=== PATIENT | male | born 1945 | race Caucasian/White ===

== ENCOUNTER 2020-03-09 17:28 | Emergency (ER) | payer MEDICARE, OTHER, SELFPAY ==
--- NOTE | 2020-03-09 18:00 | PC.NURSE ---
Pt family member to desk. PT family member states I am sorry we are going to leave dad does not like crowds and its too busy in here for him.
== END 2020-03-09 18:00 | disposition left against medical advice (07) ==
PROVIDERS: PCP Family Medicine
DX: Z53.21 Procedure and treatment not carried out due to patient leaving prior to being seen by health care provider (principal)
CPT/HCPCS: 99199

== ENCOUNTER 2020-03-09 18:45 | Inpatient (IN) | payer MEDICARE, OTHER, SELFPAY ==
[2020-03-09 19:13] VITALS: BP 127/70; PULSE 76; RESP 20; TEMP 36.8; O2SAT 97
[2020-03-09 20:17] LABS: Basophils Absolute Auto 0.04 K/mm3 (0.00-0.10); Basophils Percent Auto 0.6 % (0.0-1.0); Eosinophils Absolute Auto 0.16 K/mm3 (0.02-0.50); Eosinophils Percent Auto 2.4 % (1.0-6.0); Hematocrit 39.9 % (37.0-46.0); Hemoglobin 13.4 g/dL (12.4-15.3); Immature Granulocyte Absolute 0.07 K/mm3 (0.00-0.00); Immature Granulocyte Percent A 1.1 % (0.0-0.0); Lymphocytes Absolute Auto 1.22 K/mm3 (1.10-4.50); Lymphocytes Percent Auto 18.5 % (18.0-42.0); Mean Corpuscular HGB Conc 33.6 g/dL (32.0-36.0); Mean Corpuscular Hemoglobin 33.3 pg (27.0-31.0); Mean Corpuscular Volume 99.3 fL (78.0-102.0); Mean Platelet Volume 9.8 fl (8.7-11.0); Monocytes Absolute Auto 0.76 K/mm3 (0.10-0.90); Monocytes Percent Auto 11.5 % (2.0-11.0); Neutrophils Absolute Auto 4.4 K/mm3 (1.7-7.2); Neutrophils Percent Auto 65.9 % (50.0-70.0); Platelet Count Result 140 K/mm3 (150-420); Red Blood Count 4.02 M/mm3 (4.70-6.10); Red Cell Distribution Width 13.5 % (11.6-14.4); White Blood Count 6.6 K/mm3 (4.8-10.8)
--- NOTE | 2020-03-09 20:23 | ED.EAR ---
HPI - Ear Problem General Source: patient and family Mode of arrival: ambulatory Limitations: other (education status) History of Present Illness HPI Narrative: Patient comes in, he had been seen by Dr Elliott, the ear doctor. He has been treated for an otitis externa without improvement. He saw Dr Elliott and had a ct of his head done today. He was supposed to go to [place] to be admitted for a miliganant otitis externa, but while there waiting he got aggravated and decided to leave and come here. He requests treatment here for his ear. MD Complaint: ear pain and ear discharge (clear from right ear) Duration: constant Severity: moderate Relieving factors: nothing Discharge from ear: Reports yes - clear Associated symptoms ear: external ear tenderness Treatment prior to arrival: other (oral antibiotic) Related Data Home Medications Medication Instructions Recorded Confirmed insulin aspart U-100 100 unit/mL 5 unit SUBCUT TID 03/03/20 03/09/20 (3 mL) subcutaneous pen insulin glargine 100 unit/mL (3 10 unit SUBCUT QPM 03/03/20 03/09/20 mL) subcutaneous pen nitroglycerin 0.4 mg sublingual 0.4 mg SUBLINGUAL Q5M PRN 03/03/20 03/09/20 tablet pantoprazole 40 mg tablet,delayed 40 mg PO QAM 03/03/20 03/09/20 release paroxetine HCl 40 mg tablet 40 mg PO DAILY 03/03/20 03/09/20 pravastatin 40 mg tablet 40 mg PO DAILY 03/03/20 03/09/20 spironolactone 50 mg tablet 50 mg PO DAILY 03/03/20 03/09/20 tamsulosin 0.4 mg capsule 0.4 mg PO DAILY 03/03/20 03/09/20 triamcinolone acetonide 0.1 % 1 applic DENTAL BID 03/03/20 03/09/20 dental paste aspirin [Aspir-Low] 81 mg PO DAILY 03/09/20 03/09/20 carvedilol [Coreg] 3.125 mg PO DAILY 03/09/20 03/09/20 ferrous sulfate 325 mg PO DAILY 03/09/20 03/09/20 furosemide 20 mg PO DAILY 03/09/20 03/09/20 metformin 1,000 mg PO BID 03/09/20 03/09/20 Allergies Allergy/AdvReac Type Severity Reaction Status Date / Time blue dye Allergy Unknown Verified 03/09/20 22:10 Review of Systems Review of Systems: Narrative: He denies fever and chills. He has had pain in the right jaw and pain with chewing. He denies any other symptoms. PMFSH Social History Social History Smoking status: Never smoker Smokeless tobacco user: chewing tobacco Second hand tobacco smoke exposure: No Alcohol intake: never Substance use: never Gender identity (if verbalized by the patient): Male Spiritual care concerns: No Exam Narrative: Exam Narrative: Side of right face is swollen. Const: General: no acute distress Nutritional Appearance: well nourished HENMT: Other: Swollen left face, with mild erythema. Eyes: Conjunctivae: conjunctivae normal Neck: Other: left neck swollen near left ear Chest: Chest palpation & inspection: normal inspection of the chest Resp: Effort & Inspection: normal respiratory effort Auscultation: clear to auscultation bilaterally Cardio: Rate: regular rate Rhythm: regular rhythm GI: GI Palp: Yes Soft to palpation Auscultation: normal bowel sounds Skin: General skin exam: normal color Neuro: General: patient oriented x3 and moves all extremities Extrem: General: normal to inspection Psych: Appearance: grossly normal Affect: normal affect Course Course Emergency Course: Discussed case with the ENT who had cared for him Dr Elliott. He asks us to admit and treat with Cipro 400mg IV every 8 hours. Labs reviewed, reviewed CT from [facility]. Vital Signs Vital signs: Vital Signs Temperature 36.8 C 03/09/20 19:13 Pulse Rate 76 03/09/20 19:13 Respiratory Rate 20 03/09/20 19:13 Blood Pressure 127/70 03/09/20 19:13 Pulse Oximetry 97 03/09/20 19:13 Temperature 37.2 C 03/09/20 22:59 Pulse Rate 76 03/09/20 22:59 Respiratory Rate 18 03/09/20 22:59 Blood Pressure 123/71 03/09/20 22:59 Pulse Oximetry 96 03/09/20 22:59 Medical Decision Making Vital Si
[2020-03-09 20:29] LABS: Alanine Aminotransferase 77 U/L (16-63); Albumin Level 2.9 g/dL (3.4-5.0); Alkaline Phosphatase 333 U/L (46-116); Anion Gap 11 mmol/L (8-16); Aspartate Amino Transferase 76 U/L (15-37); Bilirubin,Total 0.6 mg/dL (0.00-1.00); Blood Urea Nitrogen 19 mg/dL (7-18); Carbon Dioxide 23 mmol/L (21-32); Chloride 100 mmol/L (98-108); Estimated CRCL calculation 45 ml/min; Estimated Glomerular Filt Rate > 60; Glucose 317 mg/dL (70-99); Osmolality Calculated 292 mOsm/kg (285-295); Potassium 4.5 mmol/L (3.5-5.1); Sodium 134 mmol/L (136-145); Total Protein 6.8 g/dL (6.4-8.2)
[2020-03-09 20:34] LABS: Lactic Acid Reflex 1.9 mmol/L (0.4-2.0)
[2020-03-09 21:13] LABS: Erythrocyte Sedimentation Rate 42 mm/hr (0-20)
[2020-03-09] MEDS: CIPROFLOXACIN 400 MG/D5W 200ML 200 ML 200 MG IVPB (21:23)
[2020-03-09 21:30] VITALS: BP 140/79; PULSE 74; RESP 20; O2SAT 96
[2020-03-09 22:00] VITALS: BP 123/82; PULSE 81; RESP 20; O2SAT 96
[2020-03-09] MEDS: HYDROcodone/acetaminophen (*CRX) 5-325 MG TABLET 1 TAB PO (22:41)
[2020-03-09 22:43] VITALS: BMI 29.0
[2020-03-09 22:46] VITALS: PULSE 78; RESP 20; O2SAT 96
[2020-03-09 22:59] VITALS: BP 123/71; PULSE 76; RESP 18; TEMP 37.2; O2SAT 96
--- NOTE | 2020-03-09 23:00 | ADMGEN ---
This patient, Gutierrez Smith JrGianna, was admitted to 2nd Floor Room 203-2. Patient oriented to hospital policies and general routines including ID bracelet, bed and alarms, visiting hours, pain management, procedures, bathroom and other care routines, personal items, smoking policy, room service/diet, and visiting hours. Patient are encouraged to report perceived risks to care and to ask questions if they do not understand what they are told or what they should do.
--- NOTE | 2020-03-10 00:30 | PC.NURSE ---
Spoke to Dr. Trujillo regarding pt's c/o ear pain not relieved by by [place]; New orders received and noted.
--- NOTE | 2020-03-10 00:40 | PC.NURSE ---
[facility] notified of need to verify new medication orders before meds can be given.
--- NOTE | 2020-03-10 00:42 | PC.NURSE ---
Spoke to Dr. Trujillo regarding pt's insulin and accuchecks. He said he would put in new orders.
[2020-03-10] MEDS: HYDROmorphone HCL INJ (*CRX) 2 MG/ML VIAL 1 MG IV PUSH ×2 (02:10→06:15)
[2020-03-10] MEDS: CIPROFLOXACIN 400 MG/D5W 200ML 200 ML 200 MG IVPB ×2 (05:07→12:49)
[2020-03-10 05:41] LABS: Basophils Absolute Auto 0.05 K/mm3 (0.00-0.10); Basophils Percent Auto 0.8 % (0.0-1.0); Eosinophils Absolute Auto 0.16 K/mm3 (0.02-0.50); Eosinophils Percent Auto 2.6 % (1.0-6.0); Hematocrit 40.3 % (37.0-46.0); Hemoglobin 13.4 g/dL (12.4-15.3); Immature Granulocyte Absolute 0.06 K/mm3 (0.00-0.00); Lymphocytes Absolute Auto 1.19 K/mm3 (1.10-4.50); Lymphocytes Percent Auto 19.1 % (18.0-42.0); Mean Corpuscular HGB Conc 33.3 g/dL (32.0-36.0); Mean Corpuscular Hemoglobin 33.3 pg (27.0-31.0); Mean Corpuscular Volume 100.2 fL (78.0-102.0); Monocytes Absolute Auto 0.67 K/mm3 (0.10-0.90); Monocytes Percent Auto 10.8 % (2.0-11.0); Neutrophils Absolute Auto 4.1 K/mm3 (1.7-7.2); Neutrophils Percent Auto 65.7 % (50.0-70.0); Platelet Count Result 123 K/mm3 (150-420); Red Blood Count 4.02 M/mm3 (4.70-6.10); Red Cell Distribution Width 13.4 % (11.6-14.4); White Blood Count 6.2 K/mm3 (4.8-10.8)
[2020-03-10 06:24] LABS: Glucose Point of Care 238 (65-105)
[2020-03-10 07:30] VITALS: BP 138/86; PULSE 96; RESP 20; TEMP 36.2; O2SAT 97
[2020-03-10] MEDS: ONDANSETRON INJ 4 MG/2 ML VIAL IV PUSH (07:38)
--- NOTE | 2020-03-10 07:40 | PC.NURSE ---
Patient started feeling nauesous suddenly, had 200 ml of emesis containing undigested bits of food. Yellow/zimmerman in color. Patient states he thinks its because he had not eaten recently. Pt. did receive Dilaudid at 0615, pt. reports never having medication previously. Given Zofran per order IV. Pt. tolerated well. Nausea has passed, pt. able to keep some crackers down. Call light at side.
--- NOTE | 2020-03-10 07:49 | PM.IMHP ---
H&P: HPI History of Present Illness Date/Time: 03/10/20 07:49 Chief complaint: malignant otitis externa Narrative: Gutierrez Smith Jr. is a 74 year old male patient was seen by his oncologist Dr. Austin. Patient has been treated for an otitis externa that has not been healing. Dr. Austin had a head CT completed yesterday which indicated bone involvement then requested the patient to be admitted for IV antibiotics therapy. Patient states that he is having pain to the right TMJ and the pain increases with mastication and with opening his mouth wide. Patient was being treated with oral Cipro and Dr. Austin recommended continuing but with IV Cipro. Review of Systems Constitutional: Constitutional: Reports no additional constitutional complaints, Denies body ache(s), Denies chills, Denies daytime sleepiness, Denies fever(s) and Denies headache(s) ENT: Reports as per HPI Cardiovascular: Cardiovascular: Reports no additional cardiovascular complaints Respiratory: Respiratory: Reports no additional respiratory complaints Gastrointestinal: Gastrointestinal: Reports no additional gastrointestinal complaints Musculoskeletal: Musculoskeletal: Reports as per HPI (TMJ) Neurologic: Reports system reviewed and no additional complaints, except as documented Psychiatric: Psychiatric: Reports no additional psychiatric complaints [facility] Past Medical History Medical History Arthritis Depression Diabetes Edema Full dentures Surgical History Surgical History (Updated 03/10/20 @ 14:18 by GLADYS Salvador) History of heart artery stent Family History Family History (Updated 03/10/20 @ 14:19 by GLADYS Salvador) Father Acute myocardial infarction Cerebrovascular accident Mother Acute myocardial infarction Social History Social History (Updated 03/10/20 @ 14:19 by GLADYS Salvador) Smoking status: Never smoker Smokeless tobacco user: chewing tobacco Second hand tobacco smoke exposure: No Alcohol intake: never Alcohol use details: very seldom Substance use: never Gender identity (if verbalized by the patient): Male Spiritual care concerns: No Meds Home Medications and Allergies Home Medications Medication Instructions Recorded Confirmed Type hydrocodone 5 mg-acetaminophen 325 1 tablet PO .qhs PRN #10 tablet 03/01/20 03/09/20 Rx mg tablet insulin aspart U-100 100 unit/mL 5 unit SUBCUT TID 03/03/20 03/09/20 History (3 mL) subcutaneous pen insulin glargine 100 unit/mL (3 10 unit SUBCUT QPM 03/03/20 03/09/20 History mL) subcutaneous pen [id number] 3.5 4 drp RIGHTEAR Q8H #10 ml 03/03/20 03/09/20 Rx mg/mL-10,000 unit/mL-1 % ear solution nitroglycerin 0.4 mg sublingual 0.4 mg SUBLINGUAL Q5M PRN 03/03/20 03/09/20 History tablet pantoprazole 40 mg tablet,delayed 40 mg PO QAM 03/03/20 03/09/20 History release paroxetine HCl 40 mg tablet 40 mg PO DAILY 03/03/20 03/09/20 History pravastatin 40 mg tablet 40 mg PO DAILY 03/03/20 03/09/20 History spironolactone 50 mg tablet 50 mg PO DAILY 03/03/20 03/09/20 History tamsulosin 0.4 mg capsule 0.4 mg PO DAILY 03/03/20 03/09/20 History triamcinolone acetonide 0.1 % 1 applic DENTAL BID 03/03/20 03/09/20 History dental paste aspirin [Aspir-Low] 81 mg PO DAILY 03/09/20 03/09/20 History carvedilol [Coreg] 3.125 mg PO DAILY 03/09/20 03/09/20 History ferrous sulfate 325 mg PO DAILY 03/09/20 03/09/20 History furosemide 20 mg PO DAILY 03/09/20 03/09/20 History metformin 1,000 mg PO BID 03/09/20 03/09/20 History Allergies Allergy/AdvReac Type Severity Reaction Status Date / Time blue dye Allergy Unknown Verified 03/09/20 22:10 Vital Signs Vital Signs - 24 hr 03/09/20 19:13 03/09/20 21:30 03/09/20 22:00 Temperature 98.2 F Pulse Rate 76 74 81 Respiratory Rate 20 20 20 Blood Pressure 127/70 140/79 123/82 Pulse O
[2020-03-10 08:58] VITALS: PULSE 96
[2020-03-10] MEDS: SACCHAROMYCES BOULARDII 250 MG CAPSULE PO ×3 (08:58→17:17)
[2020-03-10] MEDS: PRAVASTATIN SODIUM 20 MG TABLET 40 MG PO (08:58)
[2020-03-10] MEDS: SPIRONOLACTONE 25 MG TABLET 50 MG PO (08:58)
[2020-03-10] MEDS: carvediloL 3.125 MG TABLET PO (08:58)
[2020-03-10] MEDS: TAMSULOSIN HCL 0.4 MG CAPSULE PO (08:58)
[2020-03-10] MEDS: metFORMIN HCL 500 MG TABLET 1000 MG PO ×2 (08:58→17:17)
[2020-03-10] MEDS: CIPROFLOXACIN HCL 0.3% OP SOLN 2.5 ML BTL 4 DROP LEFT EAR ×4 (08:59→21:30)
[2020-03-10] MEDS: PARoxetine 20 MG TABLET 40 MG PO (08:59)
[2020-03-10] MEDS: FUROSEMIDE 20 MG TABLET PO (08:59)
[2020-03-10] MEDS: PANTOPRAZOLE 40 MG TABLET PO (08:59)
[2020-03-10] MEDS: ASPIRIN 81 MG ENTERIC TABLET PO (08:59)
[2020-03-10] MEDS: FERROUS SULFATE 324 MG TABLET PO (09:00)
[2020-03-10] MEDS: ENOXAPARIN 30 MG/0.3 ML SYRINGE SUB-Q (09:00)
[2020-03-10 11:13] LABS: Glucose Point of Care 384 (65-105)
[2020-03-10 15:45] VITALS: BP 117/74; PULSE 89; RESP 18; TEMP 36.6; O2SAT 96
[2020-03-10 17:05] LABS: Glucose Point of Care 194 (65-105)
[2020-03-10] MEDS: INSULIN GLARGINE (*BKC) 100 UNITS/ML 10 UNITS SUB-Q (17:18)
[2020-03-10 20:59] LABS: Glucose Point of Care 385 (65-105)
[2020-03-11] VITALS: BP 125/62; PULSE 82; RESP 18; TEMP 36.7; O2SAT 95
[2020-03-11] MEDS: CIPROFLOXACIN 400 MG/D5W 200ML 200 ML 200 MG IVPB (05:26)
[2020-03-11 05:55] LABS: Basophils Absolute Auto 0.05 K/mm3 (0.00-0.10); Basophils Percent Auto 0.8 % (0.0-1.0); Eosinophils Absolute Auto 0.13 K/mm3 (0.02-0.50); Eosinophils Percent Auto 2.1 % (1.0-6.0); Hematocrit 42.7 % (37.0-46.0); Hemoglobin 14.1 g/dL (12.4-15.3); Immature Granulocyte Absolute 0.08 K/mm3 (0.00-0.00); Immature Granulocyte Percent A 1.3 % (0.0-0.0); Lymphocytes Absolute Auto 1.47 K/mm3 (1.10-4.50); Lymphocytes Percent Auto 23.2 % (18.0-42.0); Mean Platelet Volume 9.2 fl (8.7-11.0); Monocytes Absolute Auto 0.75 K/mm3 (0.10-0.90); Monocytes Percent Auto 11.8 % (2.0-11.0); Neutrophils Absolute Auto 3.9 K/mm3 (1.7-7.2); Neutrophils Percent Auto 60.8 % (50.0-70.0); Platelet Count Result 143 K/mm3 (150-420); Red Blood Count 4.27 M/mm3 (4.70-6.10); Red Cell Distribution Width 13.6 % (11.6-14.4); White Blood Count 6.3 K/mm3 (4.8-10.8)
[2020-03-11 06:12] LABS: Alanine Aminotransferase 63 U/L (16-63); Alkaline Phosphatase 302 U/L (46-116); Anion Gap 10 mmol/L (8-16); Aspartate Amino Transferase 47 U/L (15-37); Bilirubin,Total 0.9 mg/dL (0.00-1.00); Blood Urea Nitrogen 18 mg/dL (7-18); Calcium 9.4 mg/dL (8.5-10.1); Carbon Dioxide 25 mmol/L (21-32); Chloride 99 mmol/L (98-108); Estimated CRCL calculation 43 ml/min; Estimated Glomerular Filt Rate > 60; Glucose 260 mg/dL (70-99); Osmolality Calculated 288 mOsm/kg (285-295); Potassium 4.5 mmol/L (3.5-5.1); Sodium 134 mmol/L (136-145); Total Protein 7.1 g/dL (6.4-8.2)
[2020-03-11 07:30] VITALS: BP 129/81; PULSE 88; RESP 20; TEMP 36.6; O2SAT 95
--- NOTE | 2020-03-11 07:36 | PM.DS ---
DS: Admitting Diagnosis Admitting Diagnosis Admitting Diagnosis: malignant otitis externa DS: Discharge Diagnosis Discharge Diagnosis (1) Malignant otitis externa of right ear: Qualifiers: Chronicity: chronic Qualified Code(s): H60.21 - Malignant otitis externa, right ear Code(s): H60.21 - Malignant otitis externa, right ear Status: Acute Assessment and Plan: 03/10/2020 patient was sent to an outside hospital by ENT Dr. Austin however patient waited for an extended period of time and decided to come to this facility to be admitted per Dr. Austin's orders for IV antibiotics. According to Dr. Austin's office note CT scan showed bone involvement. Ciprofloxacin Q12h at this time. I did speak with Dr. Austin inform me that tomorrow we can discharge this patient on oral ciprofloxacin and continue his ear drops as well. And then patient will just need to follow-up with the Dr. Austin within a week 03/11/[address] Austin yesterday the duration of antibiotic use will be 4-8 weeks. Will send patient home with Cipro 500 2 times a day and Florastor 3 times a day for 4 weeks in order to give the patient enough time to follow-up with Dr. Austin. (2) HTN (hypertension): Code(s): I10 - Essential (primary) hypertension Status: Acute Assessment and Plan: 03/10/2020 continue home medication (3) Diabetes: Code(s): E11.9 - Type 2 diabetes mellitus without complications Status: Acute Assessment and Plan: 03/10/2020 is on glargine, metformin, SSI, Accu-Cheks ACHS, with medication ordered for hypoglycemic event if needed, will monitor and make adjustments as needed 03/11/2020 Patient to continue his home regimen on discharge (4) Hyperlipidemia: Code(s): E78.5 - Hyperlipidemia, unspecified Status: Acute Assessment and Plan: 03/10/2020 will treat with home medication if not on formulary then will add similar to regimen DS: Summary Time Spent with Patient Time attestation: Total time spent providing and/or coordinating discharge services:< 30 min Exam Const: General: cooperative, healthy appearing and no acute distress Nutritional Appearance: overweight HENMT: Head images: 1. area of light redness and tenderness at the TMJ Resp: Effort & Inspection: normal respiratory effort Auscultation: clear to auscultation bilaterally Cardio: Rate: regular rate Rhythm: regular rhythm Heart sounds: S1 normal heart sound present and S2 normal heart sound present Neuro: General: oriented to person, oriented to place and oriented to time Cranial nerves: Yes CN's II-XII intact bilaterally (grossly intact) Cognition (Neuro): normal cognition Speech: normal speech Motor exam (neuro): 5/5 motor strength present throughout Psych: Appearance: grossly normal Speech and movement: Normal speech and movement present Affect: normal affect Attitude: cooperative Thought process: Normal thought process present Thought content: Yes Normal thought content present DS: Data Data Completed and Pending Labs on day of discharge: Labs from last 24 hours 03/11/20 03/11/20 03/10/20 05:41 05:41 20:52 WBC 6.3 RBC 4.27 L Hgb 14.1 Hct 42.7 MCV 100.0 MCH 33.0 H MCHC 33.0 RDW 13.6 Plt Count 143 L MPV 9.2 Immature Gran % (Auto) 1.3 H Neut % (Auto) 60.8 Lymph % (Auto) 23.2 Bertie % (Auto) 11.8 H Eos % (Auto) 2.1 Baso % (Auto) 0.8 Lymph # (Auto) 1.47 Bertie # (Auto) 0.75 Eos # (Auto) 0.13 Baso # (Auto) 0.05 Abs Immat Gran (auto) 0.08 H Absolute Neuts (auto) 3.9 Absolute Nucleated RBC 0.00 Nucleated RBC % 0.0 Sodium 134 L Potassium 4.5 Chloride 99 Carbon Dioxide 25 Anion Gap 10 BUN 18 Creatinine 1.13 Estim Creat Clear Calc 43 Estimated GFR > 60 Glucose 260 H POC Capillary Glucose 385 Calculated Osmolality 288 Calcium 9.4 Total Bilirubi
[2020-03-11 07:56] LABS: Glucose Point of Care 274 (65-105)
[2020-03-11] MEDS: CIPROFLOXACIN HCL 0.3% OP SOLN 2.5 ML BTL 4 DROP LEFT EAR (09:11)
[2020-03-11] MEDS: ENOXAPARIN 30 MG/0.3 ML SYRINGE SUB-Q (09:12)
[2020-03-11 09:13] VITALS: PULSE 88
[2020-03-11] MEDS: PRAVASTATIN SODIUM 20 MG TABLET 40 MG PO (09:13)
[2020-03-11] MEDS: SPIRONOLACTONE 25 MG TABLET 50 MG PO (09:13)
[2020-03-11] MEDS: ASPIRIN 81 MG ENTERIC TABLET PO (09:13)
[2020-03-11] MEDS: FERROUS SULFATE 324 MG TABLET PO (09:13)
[2020-03-11] MEDS: FUROSEMIDE 20 MG TABLET PO (09:13)
[2020-03-11] MEDS: PANTOPRAZOLE 40 MG TABLET PO (09:13)
[2020-03-11] MEDS: carvediloL 3.125 MG TABLET PO (09:13)
[2020-03-11] MEDS: TAMSULOSIN HCL 0.4 MG CAPSULE PO (09:13)
[2020-03-11] MEDS: SACCHAROMYCES BOULARDII 250 MG CAPSULE PO (09:14)
[2020-03-11] MEDS: metFORMIN HCL 500 MG TABLET 1000 MG PO (09:14)
[2020-03-11] MEDS: PARoxetine 20 MG TABLET 40 MG PO (09:14)
--- NOTE | 2020-03-11 11:47 | PC.NURSE ---
Blood sugar check 320. Patient states since he is being discharged he does not want to eat lunch here. States he will eat when he gets home. Since patient is not eating immedialty, insulin held per [employer] order.
--- NOTE | 2020-03-11 12:30 | PC.NURSE ---
All discharge instructions and education reviewed with patient. Patient reports understanding. All belongings gathered and sent home with patient. IV site removed, tip intact. Dressing applied to site. Pt. to be discharged home. Pt. accompanied to front door via wheelchair. Left via private vehicle with son.
--- NOTE | 2020-03-11 14:27 | PC.NURSE ---
Pt states he was given and understood the discharge instructions.
[2020-03-11 15:15] LABS: Glucose Point of Care 320 (65-105)
--- NOTE | 2020-03-12 00:54 | PM.EVENT ---
Event Note Event Note Event Note: I have examined the patient and reviewed the chart. I discussed the patient's care with Ted Eduardo APN and agree with his assessment and plan.
--- NOTE | 2020-03-14 11:12 | PC.NURSE ---
Addendum entered by Hailey Narvaez RN 03/14/20 11:14: this note charged on the wrong patient. Original Note: Attempted discharge call back without success. Phone number listed in invalid.
== END 2020-03-11 12:30 | disposition home or self-care (01) | DRG 156 ==
LOC: CHSED 18:52 → CHS2ND 22:16
PROVIDERS: Nurse Practitioner Family; Admitting Provider Emergency Medicine; Emergency Provider Emergency Medicine; PCP Family Medicine; Visit Provider Emergency Medicine
DX: H60.22 Malignant otitis externa, left ear (principal); F17.220 Nicotine dependence, chewing tobacco, uncomplicated; H60.21 Malignant otitis externa, right ear; E11.9 Type 2 diabetes mellitus without complications; I10 Essential (primary) hypertension; E78.5 Hyperlipidemia, unspecified; M19.90 Unspecified osteoarthritis, unspecified site; F32.9 Major depressive disorder, single episode, unspecified
CPT/HCPCS: 36415; 80053; 83605; 85025; 85652; 86140; 96365; 99284; 99285; A9270; J0744; J1170; J1650; J1815; J2405